=== PATIENT | female | born 1955 | race Caucasian/White ===

== ENCOUNTER 2020-01-26 17:14 | Emergency (ER) | payer MEDICARE, MEDICAID ==
[~2020-01-26] VITALS: Ht 167.6 cm; Wt 71.2 kg
[2020-01-26 17:24] VITALS: BP_SYST 137
[2020-01-26] MEDS ORDERED: LIDOCAINE 1% 10 MG/ML, 20 ML MDV INJ ONE (17:45)
[2020-01-26] MEDS ORDERED: DIPH-TET-PERTUS Vaccine 0.5 ML VIAL (ADACEL) I.M. ONE (18:30)
[2020-01-26 18:47] VITALS: BP_SYST 137
== END 2020-01-26 18:47 | disposition home or self-care (01) ==
LOC: SED 17:14
DX: S01.01XA Laceration without foreign body of scalp, initial encounter (principal); E78.00 Pure hypercholesterolemia, unspecified; R03.0 Elevated blood-pressure reading, without diagnosis of hypertension; W22.8XXA Striking against or struck by other objects, initial encounter; Y93.89 Activity, other specified; Y92.002 Bathroom of unspecified non-institutional (private) residence as the place of occurrence of the external cause; Y99.8 Other external cause status
CPT/HCPCS: 12001; 90471; 90715; 99283; J2001

== ENCOUNTER 2020-02-04 20:24 | Emergency (ER) | payer MEDICARE, MEDICAID ==
[~2020-02-04] VITALS: Ht 167.6 cm; Wt 71.2 kg
[2020-02-04 20:38] VITALS: BP_SYST 126
[2020-02-04] MEDS ORDERED: SERT100T PO (20:47)
[2020-02-04] MEDS ORDERED: TRAZ-219 PO (20:47)
[2020-02-04 21:30] VITALS: BP_SYST 126
== END 2020-02-04 21:30 | disposition left against medical advice (07) ==
LOC: SED 20:24
DX: S01.91XD Laceration without foreign body of unspecified part of head, subsequent encounter (principal); E78.00 Pure hypercholesterolemia, unspecified; X58.XXXD Exposure to other specified factors, subsequent encounter
CPT/HCPCS: 99281

== ENCOUNTER 2020-02-05 07:49 | Emergency (ER) | payer MEDICARE, MEDICAID ==
[~2020-02-05] VITALS: Ht 170.2 cm; Wt 65.8 kg
[~2020-02-05 07:49] MED LIST: SERT100T PO; TRAZ-219 PO
[2020-02-05 08:04] VITALS: BP_SYST 159
--- NOTE | 2020-02-05 08:04 | NUR ---
Patient to ER bed 3 to gown for evaluation. Side rails up.
--- NOTE | 2020-02-05 08:05 | NUR ---
Patient presented to ER C/O staple removal. Patient A&Ox4, afebrile, ambulatory, skin pink, 2 amada to posterior scalp, denies pain, denies N/V/D. Patient states she was seen in [facility] ER 8 days ago, 2 staple placed.
--- NOTE | 2020-02-05 08:28 | NUR ---
ER Dr. Vargas at bedside examining patient.
[2020-02-05] MEDS ORDERED: KETOROLAC TROMETHAMINE 30 MG VIAL IM ONE (08:30)
[2020-02-05 08:50] VITALS: BP_SYST 141
--- NOTE | 2020-02-05 08:51 | NUR ---
Patient given written and verbal discharge instructions and verbalizes understanding. ER MD discussed with patient the results and treatment provided. Patient in stable condition. ID arm band removed. Rx of SOMA, IBUPROFEN given. Patient educated on pain management and to follow up with PMD. Pain Scale 0/10. Opportunity for questions provided and answered. Medication side effect fact sheet provided.
== END 2020-02-05 08:50 | disposition home or self-care (01) ==
LOC: SED 07:49
DX: Z48.02 Encounter for removal of sutures (principal); G89.29 Other chronic pain; M54.5 Low back pain
CPT/HCPCS: 96372; 99283; J1885

== ENCOUNTER 2020-05-02 09:51 | Emergency (ER) | payer MEDICARE, MEDICAID ==
[~2020-05-02] VITALS: Ht 172.7 cm; Wt 75.7 kg
--- NOTE | 2020-05-02 10:10 | NUR ---
Latonya mari in [facility] - 05/02/20 at 1013 by REGINA GRIS Joyce in waiting room examining patient.
[2020-05-02 10:14] VITALS: BP_SYST 142
--- NOTE | 2020-05-02 10:20 | NUR ---
Patient triaged and placed in waiting room. VSS and patient appears in no acute distress at this time. Awaiting available bed, and MD notified of need for MSE.
--- NOTE | 2020-05-02 10:37 | NUR ---
Patient to ER chair 2 for evaluation. Side rails up. Report given to JM Smith.
--- NOTE | 2020-05-02 10:40 | NUR ---
Pt brought by self , A&Ox4, pt presents to ER with R arm pain and swelling, pt denies trauma, skin pink and warm , cap refill <3, VSS.
[2020-05-02] MEDS ORDERED: KETOROLAC TROMETHAMINE 30 MG VIAL IM ONE (10:45)
== END 2020-05-02 10:57 | disposition left against medical advice (07) ==
LOC: SED 09:51
DX: M79.641 Pain in right hand (principal); M79.89 Other specified soft tissue disorders; E78.00 Pure hypercholesterolemia, unspecified
CPT/HCPCS: 96372; 99283; J1885

== ENCOUNTER 2021-03-31 18:28 | Emergency (ER) | payer MEDICARE, MEDICAID ==
[~2021-03-31] VITALS: Ht 172.7 cm; Wt 69.9 kg
[~2021-03-31 18:28] MED LIST changes: -TRAZ-219 PO; +TRAZ-251 PO
[2021-03-31 18:33] VITALS: BP_SYST 154
[2021-03-31] MEDS ORDERED: TRAZ-251 PO (20:09)
[2021-03-31] MEDS ORDERED: BUPR-120 PO (20:09)
[2021-03-31] MEDS ORDERED: SERT100T PO (20:09)
[2021-03-31 20:17] VITALS: BP_SYST 154
== END 2021-03-31 20:18 | disposition home or self-care (01) ==
LOC: SED 18:28
DX: F31.9 Bipolar disorder, unspecified (principal); Z76.0 Encounter for issue of repeat prescription; E78.00 Pure hypercholesterolemia, unspecified
CPT/HCPCS: 99281

== ENCOUNTER 2021-05-08 16:03 | Emergency (ER) | payer MEDICARE, MEDICAID ==
[~2021-05-08] VITALS: Ht 170.2 cm; Wt 70.8 kg
[~2021-05-08 16:03] MED LIST changes: +BUPR-120 PO
[2021-05-08 16:15] VITALS: BP_SYST 141
[2021-05-08] MEDS ORDERED: HYDROcodone/ACETAMIN 7.5-325 MG TAB PO ONE (16:30)
[2021-05-08] MEDS ORDERED: KETOROLAC TROMETHAMINE 30 MG VIAL IM ONE (16:30)
[2021-05-08] MEDS ORDERED: IBUP-1969 PO (17:40)
[2021-05-08] MEDS ORDERED: HYDR-3917 PO (17:40)
[2021-05-08 17:55] VITALS: BP_SYST 141
== END 2021-05-08 17:55 | disposition home or self-care (01) ==
LOC: SED 16:03
DX: R07.89 Other chest pain (principal); M54.5 Low back pain; E78.00 Pure hypercholesterolemia, unspecified; F32.9 Major depressive disorder, single episode, unspecified; Z79.899 Other long term (current) drug therapy
CPT/HCPCS: 71045; 72100; 96372; 99284; J1885

== ENCOUNTER 2022-11-02 21:27 | Emergency (ER) | payer MEDICARE, MEDICAID ==
[~2022-11-02 21:27] MED LIST changes: +HYDR-3917 PO; +IBUP-1969 PO
== END 2022-11-02 21:50 | disposition left against medical advice (07) ==
LOC: SED 21:27
DX: M54.50 Low back pain, unspecified (principal); Z53.21 Procedure and treatment not carried out due to patient leaving prior to being seen by health care provider

== ENCOUNTER 2023-02-05 18:53 | Emergency (ER) | payer MEDICARE, MEDICAID ==
[~2023-02-05] VITALS: Ht 162.6 cm; Wt 67.1 kg
[2023-02-05 19:03] VITALS: BP_SYST 175
--- NOTE | 2023-02-05 19:53 | NUR ---
DR. MACKAY WITH PATIENT IN TRIAGE FOR MSE.
[2023-02-05] MEDS ORDERED: KETOROLAC TROMETHAMINE 30 MG VIAL IM ONE (20:00)
--- NOTE | 2023-02-05 20:00 | NUR ---
CALLED PATIENT TO COMPLETE NURSE ASSESSMENT. PT NOT FOUND IN WAITING ROOM.
[2023-02-05 20:21] LABS: BASOPHILS # (AUTO) 0.1 K/uL (0.0-0.2); BASOPHILS % (AUTO) 0.6 % (0.0-2.0); EOSINOPHILS # (AUTO) 0.3 K/uL (0.0-0.4); EOSINOPHILS % (AUTO) 2.8 % (0.0-4.0); HEMATOCRIT 40.6 % (36-48); LYMPHOCYTES # (AUTO) 2.7 K/uL (1.0-5.5); LYMPHOCYTES % (AUTO) 29.3 % (20.5-51.5); MEAN CORPUSCULAR HEMOGLOBIN 32 pg (27-31); MEAN CORPUSCULAR HGB CONC 34 % (32-36); MEAN CORPUSCULAR VOLUME 94 fL (79.0-98.0); MONOCYTES # (AUTO) 0.6 K/uL (0.0-1.0); MONOCYTES % (AUTO) 6.6 % (1.7-9.3); NEUTROPHILS # (AUTO) 5.5 K/uL (1.8-7.7); NEUTROPHILS % (AUTO) 60.7 % (40.0-70.0); PLATELET COUNT (AUTO) 350 K/uL (130-430); RED BLOOD CELL COUNT(AUTO) 4.33 MIL/uL (4.2-6.2); WHITE BLOOD COUNT (AUTO) 9.1 K/uL (4.8-10.8)
[2023-02-05 20:45] LABS: ALANINE AMINOTRANSFERASE 28 U/L (12-78); ALBUMIN 3.8 g/dL (3.4-4.8); ANION GAP 9 (5-15); ASPARTATE AMINOTRANSFERASE 20 U/L (10-37); CHLORIDE 103 mmol/L (98-107); CREATININE 0.76 mg/dL (0.55-1.30); GFR AFRICAN AMERICAN 98 mL/min (>90); GLUCOSE 98 mg/dL (70-99); TOTAL BILIRUBIN 0.5 mg/dL (0.0-1.0); UREA NITROGEN, BLOOD 12 mg/dL (8-21)
[2023-02-05 20:48] LABS: ERYTHROCYTE SEDIMENTATION RATE 6 MM/HR (0-20)
[2023-02-05 20:59] LABS: C-REACTIVE PROTEIN QUANT < 0.2 mg/dL (0-0.5)
--- NOTE | 2023-02-05 21:07 | NUR ---
CALLED PATIENT FOR MEDICATION ADMINISTRATION. PT NOT FOUND IN WAITING ROOM.
--- NOTE | 2023-02-05 21:21 | NUR ---
CALLED PATIENT IN WAITING ROOM. PT NOT FOUND.
--- NOTE | 2023-02-05 21:35 | NUR ---
CALLED PATIENT FOR URINE SAMPLE. PT NOT FOUND IN WAITING ROOM.
== END 2023-02-05 20:00 | disposition left against medical advice (07) ==
LOC: SED 18:53
DX: M48.061 Spinal stenosis, lumbar region without neurogenic claudication (principal); M54.16 Radiculopathy, lumbar region; R20.2 Paresthesia of skin; Z79.899 Other long term (current) drug therapy
CPT/HCPCS: 36415; 74018; 80053; 85025; 85651-TC; 86140; 99284; J1885

== ENCOUNTER 2023-06-30 02:19 | Emergency (ER) | payer MEDICARE, MEDICAID ==
[~2023-06-30] VITALS: Ht 172.7 cm; Wt 68.0 kg
[2023-06-30 02:28] VITALS: BP_SYST 136; PULSE 90; RESP 19; TEMP 97.9; O2SAT 96
[2023-06-30] MEDS ORDERED: MORPHINE 4 MG INJ. 4 MG/ML VIAL IVP ONE (03:45)
[2023-06-30 04:25] LABS: BASOPHILS % (AUTO) 0.3 % (0.0-2.0); EOSINOPHILS # (AUTO) 0.2 K/uL (0.0-0.4); EOSINOPHILS % (AUTO) 1.7 % (0.0-4.0); HEMATOCRIT 37.5 % (36-48); HEMOGLOBIN 12.7 g/dL (12.0-16.0); LYMPHOCYTES # (AUTO) 2.2 K/uL (1.0-5.5); LYMPHOCYTES % (AUTO) 18.3 % (20.5-51.5); MEAN CORPUSCULAR HEMOGLOBIN 31 pg (27-31); MEAN CORPUSCULAR HGB CONC 34 % (32-36); MEAN CORPUSCULAR VOLUME 93 fL (79.0-98.0); MONOCYTES # (AUTO) 0.8 K/uL (0.0-1.0); MONOCYTES % (AUTO) 6.4 % (1.7-9.3); NEUTROPHILS # (AUTO) 8.8 K/uL (1.8-7.7); NEUTROPHILS % (AUTO) 73.3 % (40.0-70.0); PLATELET COUNT (AUTO) 544 K/uL (130-430); RED BLOOD CELL COUNT(AUTO) 4.06 MIL/uL (4.2-6.2); RED CELL DISTRIBUTION WIDTH 12.5 % (9.0-15.0); WHITE BLOOD COUNT (AUTO) 11.9 K/uL (4.8-10.8)
[2023-06-30 04:30] LABS: ERYTHROCYTE SEDIMENTATION RATE 31 MM/HR (0-20)
[2023-06-30 04:31] LABS: INR 1.1 (0.8-1.2)
[2023-06-30 04:36] LABS: CALCIUM 8.8 mg/dL (8.4-11.0); CREATININE 0.72 mg/dL (0.55-1.30)
[2023-06-30 04:40] LABS: TOTAL BILIRUBIN 0.7 mg/dL (0.0-1.0); TOTAL PROTEIN, SERUM 7.4 g/dL (6.4-8.3)
[2023-06-30 05:30] VITALS: BP_SYST 136; PULSE 81; RESP 18; TEMP 97.9; O2SAT 97
[2023-06-30] MEDS ORDERED: NACL 0.9% 1,000 ML IV ONE (05:45)
[2023-06-30] MEDS ORDERED: VANCOMYCIN HCL 1,000 MG in NS 250 ML IV ONE (05:45)
[2023-06-30] MEDS ORDERED: PIPERACILLIN/TAZO 3.375 GM in NS 50 ML IV ONE (05:45)
[2023-06-30] MEDS ORDERED: POTASSIUM CHLORIDE 20 MEQ TAB.PRT.SR PO ONE (05:45)
[2023-06-30] MEDS ORDERED: VANCOMYCIN HCL 1000 MG/VIAL IV ONE (06:17)
[2023-06-30] MEDS ORDERED: PIPERACILLIN/TAZOBACTAM 3.375 GM/VIAL (ZOSYN) IV ONE (06:17)
[2023-06-30 08:12] LABS: CLARITY/URINE SLIGHTLY HAZY (CLEAR); COLOR,URINE YELLOW (YELLOW); GLUCOSE,URINE NEGATIVE (NEGATIVE); KETONES,URINE 2+ (NEGATIVE); PROTEIN URINE 1+ (NEGATIVE)
[2023-06-30 08:13] LABS: BILIRUBIN,URINE 1+ (NEGATIVE); BLOOD, URINE NEGATIVE (NEGATIVE); LEUKOCYTE ESTERASE ,URINE NEGATIVE (NEGATIVE); NITRITE, URINE NEGATIVE (NEGATIVE); UROBILINOGEN,URINE 0.2 (0.2-1.0)
[2023-06-30 08:15] LABS: BACTERIA,URINE FEW /HPF (None Seen); RBC,URINE 0-3 /HPF (0-3); WBC,URINE 0-3 /HPF (0-3)
[2023-06-30 08:16] LABS: MUCUS,URINE 3+ /LPF (None Seen)
[2023-06-30] MEDS ORDERED: TRAM50TA2 PO (09:04)
== END 2023-06-30 09:23 | disposition home or self-care (01) ==
LOC: SED 02:19
DX: L03.115 Cellulitis of right lower limb (principal); L97.819 Non-pressure chronic ulcer of other part of right lower leg with unspecified severity; R10.31 Right lower quadrant pain; E87.6 Hypokalemia; Z79.899 Other long term (current) drug therapy
CPT/HCPCS: 99285; 74176; 96365; 96375; 80053; 81000; 83690; 85025; 85610; 85651; 87040; 84484; 36415; 93005; 73590; 76376; 96368; 83605; J2543; J3370; J2270; J7030

== ENCOUNTER 2023-11-12 22:41 | Emergency (ER) | payer MEDICARE, MEDICAID ==
[~2023-11-12] VITALS: Ht 172.7 cm; Wt 65.8 kg
[~2023-11-12 22:41] MED LIST changes: +TRAM50TA2 PO
[2023-11-12 22:58] VITALS: BP_SYST 143; PULSE 98; RESP 17; TEMP 97.1; O2SAT 99
[2023-11-13] MEDS ORDERED: KETOROLAC TROMETHAMINE 30 MG VIAL IM ONE (01:00)
[2023-11-13 01:22] LABS: BILIRUBIN,URINE NEGATIVE (NEGATIVE); BLOOD, URINE NEGATIVE (NEGATIVE); COLOR,URINE YELLOW (YELLOW); GLUCOSE,URINE NEGATIVE (NEGATIVE); KETONES,URINE NEGATIVE (NEGATIVE); NITRITE, URINE POSITIVE (NEGATIVE); PROTEIN URINE NEGATIVE (NEGATIVE); UROBILINOGEN,URINE 0.2 (0.2-1.0)
[2023-11-13 01:54] LABS: CLARITY/URINE SLIGHTLY CLOUDY (CLEAR); LEUKOCYTE ESTERASE ,URINE TRACE (NEGATIVE)
[2023-11-13 01:55] LABS: RBC,URINE 0-3 /HPF (0-3)
[2023-11-13 01:56] LABS: BACTERIA,URINE MANY /HPF (None Seen)
[2023-11-13] MEDS ORDERED: NITR-85 PO (02:04)
[2023-11-13 02:49] VITALS: BP_SYST 155; PULSE 87; RESP 17; TEMP 97.1; O2SAT 99
== END 2023-11-13 02:09 | disposition home or self-care (01) ==
LOC: SED 22:41
DX: N39.0 Urinary tract infection, site not specified (principal); R10.31 Right lower quadrant pain; R11.10 Vomiting, unspecified; Z79.899 Other long term (current) drug therapy
CPT/HCPCS: 99283; 81001; 87086; 81000; 96372; 81015; J1885

== ENCOUNTER 2024-07-16 12:16 | Emergency (ER) | payer MEDICARE, MEDICAID ==
[~2024-07-16] VITALS: Ht 172.7 cm; Wt 65.3 kg
[~2024-07-16 12:16] MED LIST changes: +NITR-85 PO
[2024-07-16 12:27] VITALS: BP_SYST 143; PULSE 84; RESP 16; TEMP 97; O2SAT 100
[2024-07-16] MEDS ORDERED: CLE150 PO (13:16)
[2024-07-16] MEDS: MORPHINE 4 MG INJ. 4 MG/ML VIAL IM ONE (13:16)
[2024-07-16] MEDS: LIDOCAINE/EPI 1% 1:100000 20 ML VIAL INJ ONE (13:17)
[2024-07-16] MEDS ORDERED: IBUP-1969 PO (13:24)
[2024-07-16 14:15] VITALS: BP_SYST 143; PULSE 84; RESP 16; TEMP 97; O2SAT 100
== END 2024-07-16 14:17 | disposition home or self-care (01) ==
LOC: SED 12:16
DX: L02.31 Cutaneous abscess of buttock (principal); E78.00 Pure hypercholesterolemia, unspecified; Z79.899 Other long term (current) drug therapy; Z79.2 Long term (current) use of antibiotics
CPT/HCPCS: 99283; 10060; 96372; J2270

== ENCOUNTER 2024-09-01 17:44 | Inpatient (IN) | payer MEDICARE, MEDICAID ==
[~2024-09-01] VITALS: Ht 172.7 cm; Wt 63.5 kg
[~2024-09-01 17:44] MED LIST changes: +CLE150 PO
[2024-09-01 17:47] VITALS: BP_SYST 142; PULSE 107; RESP 22; TEMP 97.1; O2SAT 97
[2024-09-01] MEDS: NACL 0.9% 1,000 ML IV ONE (19:04)
[2024-09-01 19:22] LABS: BILIRUBIN,URINE NEGATIVE (NEGATIVE); BLOOD, URINE 1+ (NEGATIVE); CLARITY/URINE CLOUDY (CLEAR); COLOR,URINE YELLOW (YELLOW); GLUCOSE,URINE NEGATIVE (NEGATIVE); KETONES,URINE NEGATIVE (NEGATIVE); LEUKOCYTE ESTERASE ,URINE 3+ (NEGATIVE); NITRITE, URINE POSITIVE (NEGATIVE); PH,URINE 7.5 (5.0-8.0); PROTEIN URINE 1+ (NEGATIVE); UROBILINOGEN,URINE 0.2 (0.2-1.0)
[2024-09-01 19:26] LABS: BASOPHILS # (AUTO) 0.1 K/uL (0.0-0.2); BASOPHILS % (AUTO) 0.4 % (0.0-2.0); EOSINOPHILS % (AUTO) 0.2 % (0.0-4.0); HEMATOCRIT 40.6 % (36-48); HEMOGLOBIN 14.4 g/dL (12.0-16.0); LYMPHOCYTES # (AUTO) 1.6 K/uL (1.0-5.5); LYMPHOCYTES % (AUTO) 10.3 % (20.5-51.5); MEAN CORPUSCULAR HEMOGLOBIN 33 pg (27-31); MEAN CORPUSCULAR HGB CONC 35 % (32-36); MEAN CORPUSCULAR VOLUME 92 fL (79.0-98.0); MONOCYTES # (AUTO) 1.3 K/uL (0.0-1.0); MONOCYTES % (AUTO) 8.2 % (1.7-9.3); NEUTROPHILS # (AUTO) 12.4 K/uL (1.8-7.7); NEUTROPHILS % (AUTO) 80.9 % (40.0-70.0); PLATELET COUNT (AUTO) 254 K/uL (130-430); RED BLOOD CELL COUNT(AUTO) 4.41 MIL/uL (4.2-6.2); RED CELL DISTRIBUTION WIDTH 12.9 % (9.0-15.0); WHITE BLOOD COUNT (AUTO) 15.3 K/uL (4.8-10.8)
[2024-09-01 20:06] LABS: ALANINE AMINOTRANSFERASE 18 U/L (12-78); ALBUMIN 3.5 g/dL (3.4-4.8); ANION GAP 10 (5-15); ASPARTATE AMINOTRANSFERASE 18 U/L (10-37); BILIRUBIN,DIRECT 0.3 mg/dL (0.0-0.3); CALCIUM 9.1 mg/dL (8.4-11.0); CARBON DIOXIDE 29 mmol/L (23-29); CHLORIDE 95 mmol/L (98-107); CREATININE 0.88 mg/dL (0.55-1.30); GFR AFRICAN AMERICAN 82 mL/min (>90); GLUCOSE 107 mg/dL (74-106); LIPASE 56 U/L (16-77); POTASSIUM 3.3 mmol/L (3.5-5.1); SODIUM SERUM 134 mmol/L (136-145); TOTAL BILIRUBIN 1.3 mg/dL (0.0-1.0); TOTAL PROTEIN, SERUM 8.2 g/dL (6.4-8.3); UREA NITROGEN, BLOOD 11 mg/dL (8-21)
[2024-09-01] MEDS: MORPHINE 2 MG/ML INJ. SYRINGE IVP ONE (20:08)
[2024-09-01] MEDS: KETOROLAC TROMETHAMINE 15 MG VIAL IVP ONE (20:08)
[2024-09-01 20:14] LABS: GFR NON AFRICAN-AMERICAN 68 mL/min (>90)
[2024-09-01 20:18] LABS: BACTERIA,URINE FEW /HPF (None Seen); MUCUS,URINE None Seen /LPF (None Seen); WBC,URINE >100 /HPF (0-3)
[2024-09-01] MEDS ORDERED: cefTRIAXone 1 GM VIAL ONE (21:19)
[2024-09-01] MEDS: cefTRIAXone 1 GM in D5W 50 ML IV ONE (21:25)
[2024-09-01] MEDS: D5/0.45 NS 1,000 ML IV SCH (22:37)
[2024-09-02 00:55] VITALS: BP_SYST 92; PULSE 86; RESP 18; TEMP 98.1
[2024-09-02 08:00] VITALS: BP_SYST 129; PULSE 97; RESP 18; TEMP 99; O2SAT 98
[2024-09-02] MEDS ORDERED: cefTRIAXone 1 GM IVPB PREMIX 50 ML IV SCH ×3 (09:00→21:00)
[2024-09-02] MEDS ORDERED: cefTRIAXone 1 GM in D5W 50 ML IV SCH (09:00)
[2024-09-02 12:50] VITALS: BP_SYST 119; PULSE 88; RESP 18; TEMP 98.3; O2SAT 98
[2024-09-02] MEDS ORDERED: CEFTRIAXONE SOD 1 GM/ D5W 50 ML IV SCH (21:00)
[2024-09-03] MEDS ORDERED: traZODone HCL 50 MG TABLET (DESYREL) PO SCH (09:00)
== END 2024-09-02 11:40 | disposition left against medical advice (07) | DRG 872 ==
LOC: SED 17:44 → SMU 22:12
PROVIDERS: ADMIT Specialist; ATTEND Specialist
DX: A41.9 Sepsis, unspecified organism (principal); N30.00 Acute cystitis without hematuria; F32.9 Major depressive disorder, single episode, unspecified; E78.00 Pure hypercholesterolemia, unspecified; G62.9 Polyneuropathy, unspecified; N80.9 Endometriosis, unspecified; Z53.29 Procedure and treatment not carried out because of patient's decision for other reasons
CPT/HCPCS: 36415; 80048; 80076; 81000; 81001; 81015; 83605; 83690; 84484; 85025; 87040; 87086; 87186; 93005; 96365; 96375; 99291; J0696; J1885; J2270; J7060